=== PATIENT | male | born 1960 | race Caucasian/White ===

== ENCOUNTER 2017-10-27 09:44 | Emergency (ER) | payer OTHER ==
[2017-10-27 09:48] VITALS: PULSE 83; TEMP 98.2; BMI 33.2
--- NOTE | 2017-10-27 10:03 | PDOC ---
History of Present Illness - General Chief Complaint: Cold Symptoms Stated Complaint: cough Time Seen by Provider: 10/27/17 09:46 - History of Present Illness Initial Comments: 10/27/17 09:58 57-year-old male denies significant past medical history presents with 3 weeks of intermittent dry cough and left sinus pain. The patient reports the cough was intermittently productive of white clear sputum but now has become a dry cough that at times keeps him up at night. He reports a few weeks ago he had a runny nose but that has since resolved. In addition he reports feeling a little bit run down but has been able to go to work. He presents to the emergency department today because he does not have a general practitioner. Denies any fevers, chills, headache, neck stiffness, dizziness, bodyaches, chest pain, shortness of breath, abdominal pain, nausea, vomiting, diarrhea, lower extremity edema, focal weakness or numbness. Denies recent travel. Has a sick contact at work with similar symptoms. He has tried homeopathic remedy for coughing which has not helped. Past History - Past Medical History Allergies/Adverse Reactions: Allergies Allergy/AdvReac Type Severity Reaction Status Date / Time No Known Allergies Allergy Verified 10/27/17 09:45 Home Medications: Ambulatory Orders NK [No Known Home Medication] 10/27/17 COPD: No GI Disorders: Yes (ULCER) - Suicide/Smoking/Psychosocial Hx Smoking History: Former smoker Have you smoked in the past 12 months: No Information on smoking cessation initiated: No Hx Alcohol Use: Yes Drug/Substance Use Hx: No Substance Use Type: None Review of Systems - Review of Systems Comments:: 10/27/17 09:59 GENERAL/CONSTITUTIONAL: No fever or chills. No weakness. HEAD, EYES, EARS, NOSE AND THROAT: No change in vision. No ear pain or discharge. No sore throat. +sinus pain GASTROINTESTINAL: No nausea, vomiting, diarrhea or constipation. GENITOURINARY: No dysuria, frequency, or change in urination. CARDIOVASCULAR: No chest pain or shortness of breath. RESPIRATORY: +cough, no wheezing, or hemoptysis. MUSCULOSKELETAL: No joint or muscle swelling or pain. No neck or back pain. SKIN: No rash NEUROLOGIC: No headache, vertigo, loss of consciousness, or change in strength/ sensation. ENDOCRINE: No increased thirst. No abnormal weight change. HEMATOLOGIC/LYMPHATIC: No anemia, easy bleeding, or history of blood clots. ALLERGIC/IMMUNOLOGIC: No hives or skin allergy. *Physical Exam - Vital Signs Last Vital Signs Temp Pulse Resp BP Pulse Ox 98.2 F 83 18 136/104 99 10/27/17 09:44 10/27/17 09:44 10/27/17 09:44 10/27/17 09:44 10/27/17 09:44 - Physical Exam Comments: 10/27/17 10:00 GENERAL: Awake, alert, and fully oriented, in no acute distress HEAD: No signs of trauma, no ttp to any of facial sinuses EYES: PERRLA, EOMI, sclera anicteric, conjunctiva clear ENT: Auricles normal inspection, hearing grossly normal, nares patent, oropharynx clear without exudates. Moist mucosa NECK: Normal ROM, supple, no lymphadenopathy, JVD, or masses LUNGS: Breath sounds equal, clear to auscultation bilaterally. No wheezes, and no crackles HEART: Regular rate and rhythm, normal S1 and S2, no murmurs, rubs or gallops ABDOMEN: Soft, nontender, normoactive bowel sounds. No guarding, no rebound. No masses EXTREMITIES: Normal range of motion, no edema. No clubbing or cyanosis. No cords, erythema, or tenderness NEUROLOGICAL: Normal speech, cranial nerves intact, negative pronator drift, 5/ 5 strength in all 4 extremities, normal sensation to light touch in all 4 extremities, normal cerebellar exam, normal gait, normal reflexes and tone SKIN: Warm, Dry, normal turgor, no rashes or lesions noted. Medical Decision Making - Medical Decision Making 10/27/17 10:01 57-year-old male presents with 3 weeks of dry cough and left-sided facial pain. Vitals remarkable for elevated BP (134/104). Exam completely normal, with clear lungs and no crackles. Likely URI with bronchitis and possibly sinusitis. Given the length of symptoms, will treat with azithromycin. Will also provide the patient with information for the family medicine practice as he does not have a primary doctor. Prior to DC will recheck BP. 10/27/17 10:06 Repeat BP 134/105, diastolic BP elevated to 105, discussed with pt that he should have his BP rechecked when he follows up with Dr. Alanis as he may need to be on antihypertensive medications. I discussed the physical exam findings, ancillary test results and final diagnoses with the patient. I answered all of the patient's questions. The patient was satisfied with the care received and felt comfortable with the discharge plan and treatment plan. The patient will call their primary care physician within 24 hours to arrange follow-up and will return to the Emergency Department with any new, persistent or worsening symptoms. *DC/Admit/Observation/Transfer Diagnosis at time of Disposition: Upper respiratory infection, Bronchitis, Sinusitis - Discharge Dispostion Disposition: HOME Condition at time of disposition: Stable Admit: No - Referrals - Patient Instructions Printed Discharge Instructions: DI for Acute Bronchitis, DI for Viral Upper Respiratory Infection -- Adult Additional Instructions: Follow-up with Dr. Alanis within 1-2 days. Your blood pressure was elevated in the emergency department, make sure that to have your blood pressure rechecked when you follow-up with Dr. Alanis. Take your medications as prescribed. It may also be helpful to get a humidifier as dry weather can make a cough worse. Return to the emergency department if you have any new, worsening or concerning symptoms. - Post Discharge Activity - Attestations Physician Attestion: 10/27/17 10:05 I, Dr. Mercedes Don MD, attest that this document has been prepared under my direction and personally reviewed by me in its entirety. I further attest, that it accurately reflects all work, treatment, procedures and medical decision -making performed by me.
[2017-10-27 10:08] VITALS: BP 138/105
== END 2017-10-27 10:15 | disposition home or self-care (01) ==
LOC: FER 09:44
DX: J06.9 Acute upper respiratory infection, unspecified (principal); J40 Bronchitis, not specified as acute or chronic; J32.9 Chronic sinusitis, unspecified
CPT/HCPCS: 99281-25